=== PATIENT | female | born 1990 | race Caucasian/White ===

== ENCOUNTER 2020-12-20 12:20 | Emergency (ER) | payer OTHER, SELFPAY ==
[2020-12-20 12:33] VITALS: BP 148/91; PULSE 100; RESP 16; TEMP 36.9; O2SAT 99
--- NOTE | 2020-12-20 13:27 | ED.URI ---
HPI - URI/Sore Throat General Chief Complaint: Upper Respiratory Infection Stated Complaint: sore throat ear pain Source: patient Mode of arrival: ambulatory Limitations: no limitations History of Present Illness HPI Narrative: Patient is a 30-year-old female who presents complaining of sore throat, bilateral ear pain, sinus drainage, facial pressure and swollen lymph nodes x3 days. Patient reports coworker has strep throat. Patient denies known exposure to Covid, however, patient does work with the public and is not always mass. Patient reports Aries & Aries vaccine. She denies all other complaints at this time. MD elicited complaint: sore throat, nasal congestion and sinus pain Related Data Home Medications Medication Instructions Recorded Confirmed buspirone 10 mg PO TID 12/20/20 12/20/20 elagolix [Orilissa] 150 mg PO DAILY 12/20/20 12/20/20 etonogestrel [Nexplanon] 1 implant SUBDERMAL ONCE 12/20/20 12/20/20 meloxicam 15 mg PO DAILY 12/20/20 12/20/20 prednisone 40 mg PO DAILY 12/20/20 12/20/20 venlafaxine 75 mg PO DAILY 12/20/20 12/20/20 Allergies Allergy/AdvReac Type Severity Reaction Status Date / Time No Known Allergies Allergy Verified 12/20/20 12:54 Review of Systems Review of Systems: CONSTITUTIONAL: Denies fever, chills, or sweats. EYES: Denies visual changes, redness, or discharge. ENT reports congestion, sore throat, and bilateral otalgia. Reports sinus pressure. CARDIOVASCULAR: Denies chest pain, palpitations, or edema. RESPIRATORY: Denies cough or dyspnea. GASTROINTESTINAL: Denies abdominal pain, nausea, vomiting, or diarrhea. GENITOURINARY: Denies dysuria or hematuria. SKIN: Denies rash or itching. MUSCULOSKELETAL: Denies back pain, joint pain, or myalgia. NEUROLOGIC: Denies headache, numbness, dizziness, or weakness. PSYCHIATRIC: Denies anxiety or depression. [facility] Past Medical History Medical History (Updated 12/20/20 @ 13:38 by FORTINO Batista) Depression Social History Social History (Updated 12/20/20 @ 13:31 by FORTINO Batista) Smoking status: Never smoker Alcohol intake: current Alcohol use details: Occasional Substance use: never Living arrangements: with family Comments Reviewed-patient is informed that they may have pre-hypertension or hypertension based on a blood pressure reading. I recommend the patient call the primary care provider listed on their discharge instructions or a physician of their choice this week to arrange follow-up for further evaluation of possible pre-hypertension or hypertension. Exam Narrative: GENERAL: Well-appearing, well-nourished, and in no acute distress. HEAD: Normocephalic, atraumatic. EYES: EOMI. No redness or drainage. Conjunctiva are normal. ENT: Mucous membranes pink and moist. Nares clear. No rhinorrhea. TMs normal bilaterally. Throat with moderate erythema normal. Uvula midline. NECK: AROM. Supple. No lymphadenopathy. CHEST: No respiratory distress. HEART: Regular rate and rhythm. EXTREMITIES: Normal range of motion. No edema. SKIN: Warm, dry, no rash. NEURO: No focal deficits. Alert and oriented x3. Gait steady. PSYCH: Normal affect. No signs of depression or anxiety. Course Vital Signs Vital signs: Vital Signs Temperature 36.9 C 12/20/20 12:33 Pulse Rate 100 12/20/20 12:33 Respiratory Rate 16 12/20/20 12:33 Blood Pressure 148/91 H 12/20/20 12:33 Pulse Oximetry 99 12/20/20 12:33 Temperature 36.9 C 12/20/20 12:33 Pulse Rate 100 12/20/20 12:33 Respiratory Rate 16 12/20/20 12:33 Blood Pressure 148/91 H 12/20/20 12:33 Pulse Oximetry 99 12/20/20 12:33 MDM - URI/Sore Throat Differential Diagnosis Differential diagnosis: Likely upper respiratory infection, sinusitis, viral infection, bronchitis and pharyngitis Lab Data Labs: Strep Screen Presumptive Negative *(Reference Range: Negative)* Critical Ca
== END 2020-12-20 13:40 | disposition home or self-care (01) ==
PROVIDERS: Emergency Provider Nurse Practitioner; PCP Internal Medicine
DX: J06.9 Acute upper respiratory infection, unspecified (principal); J02.9 Acute pharyngitis, unspecified; Z20.822 Contact with and (suspected) exposure to COVID-19; F32.A Depression, unspecified
CPT/HCPCS: 87081; 87426; 87880; 99213; C9803; G0463